=== PATIENT | male | born 1960 | race Caucasian/White ===

== ENCOUNTER 2024-10-16 12:28 | Emergency (ER) | payer BC, SELFPAY ==
[2024-10-16] VITALS (11 sets, daily range): BP systolic 117–136; BP diastolic 69–84; PULSE 66–72; RESP 11–23; O2SAT 95–100
--- NOTE | ~2024-10-16 | CT_ITS ---
EXAMINATION: CT cervical spine wo con DATE: 10/16/2024 13:12 INDICATION: Neck pain after fall TECHNIQUE: Computed tomography (CT) of the cervical spine was performed without intravenous contrast. The dose-length product was 486 mGy-cm. Automated exposure control and iterative reconstruction technique were employed. COMPARISON: None FINDINGS: No acute fracture or traumatic malalignment. Craniovertebral junction is normal. There is moderate degenerative spondylosis at C3-4-3 C6-7 characterized is disc narrowing, endplate sclerosis as well as facet and uncinate hypertrophy. No evidence for perched facet. Craniovertebral junction is normal. Thyroid gland is normal. Lung apices are normal. IMPRESSION: 1. No acute abnormality of the cervical spine. Reviewed, dictated and finalized at location O.
--- NOTE | ~2024-10-16 | CT_ITS ---
EXAMINATION: CT BRAIN W/O DATE: 10/16/2024 13:12 INDICATION: Syncope. Head injury. TECHNIQUE: Computed tomography (CT) of the head was performed without intravenous contrast. The dose-length product was 1224.78 mGy-cm. COMPARISON: No prior studies for comparison. FINDINGS: Normal brain parenchymal volume for age. Normal stanton-white differentiation. No acute intracranial hemorrhage, infarction, mass or mass effect. No ventriculomegaly or midline shift. Midline sagittal images demonstrate a normal corpus callosum, craniovertebral junction and sella turcica. Basilar cisterns are patent. Paranasal sinuses and mastoids are pneumatized. No depressed skull fractures. IMPRESSION: 1. No acute intracranial abnormality. Reviewed, dictated and finalized at location O.
--- OUTSIDE RECORDS SUMMARY | 2024-10-16 12:56 | XMS_ITS | Clinical Summary ---
Author Organization [facility] Address [address] [place] [address] Care Team Providers Care Renal Dietitian Name Role Phone Jeff Chappell MD Unavailable [phone] Farhat Fritz MD Primary Care Provider Allergies No known active allergies Medications multivitamin,th erapeutic (THERA ORAL) Take 1 tablet by mouth every morning Active valACYclovir (VALTREX) 1 gram tablet Valtrex 1gm, 1 po bid x 3 days, disp 6, 2 RF 6 tablet 2 4 Active Additional Information Patient taking differently: As needed, Valtrex 1gm, 1 po bid x 3 days, disp 6, 2 RF, Reported on 10/12/2024 Auvi-Q 0.3 mg/0.3 mL auto-injection syringeIndicati ons:Anaphylaxis INJECT 0.3 ML (0.3 MG TOTAL) INTO THE MUSCLE INSTRUCTED NEEDED FOR ANAPHYLAXIS 2 each 1 5 Active tacrolimus (PROTOPIC) 0.1 % ointment APPLY TO RASH AREAS ON BODY 2 TIMES A DAY FOR FLARES, THEN USE TWICE A WEEK TO PREVENT RECURRENCES 5 Active terbinafine (LamiSIL) 250 mg tablet Take 1 tablet (250 mg total) by mouth daily for 90 days 5 Active losartan (COZAAR) 25 mg tablet Take 1 tablet (25 mg total) by mouth daily 30 tablet 11 5 09/03/19 26 Active Active Problems Problem Noted Date Diagnosed Date Aneurysm of ascending aorta without rupture 05/25 Family history of heart disease 04/02/2024 Hyperlipidemia 10/12/2021 Assessment & Plan (04/02/2024 9:00 AM BEARING PRESS MACHINE 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 Had side effects with statin. Will risk stratify with coronary artery calcium score given strong family history of ASCVD. Assessment & Plan (04/08/2023 8:37 PM BEARING PRESS MACHINE OPERATOR): ASCVD risk is around 9%, which is intermediate. Given his family history of heart disease, I recommended that we start a statin to reduce his overall cardiovascular risk. Rx'ed rosuvastatin 5 mg daily. Discussed possible side effects. Repeat lipids in 6 months ordered at [facility]. Assessment & Plan (10/12/2021 8:40 AM CDT): LDL cholesterol in reasonable range without need for statin at this time. Continue current diet and exercise regimen. Cellulitis of toe of left foot 04/24/2020 Ingrown nail 04/24/2020 Left inguinal hernia 07/29/2018 Overview (07/29/2018): Added automatically from request for surgery [id number] Deviated nasal septum 04/10/2018 Hypertrophy of nasal turbinates 04/10/2018 Nasal obstruction 04/09/2018 Obstructive sleep apnea 04/09/2018 Encounter for preventive care 11/20/2017 Overview (11/20/2017): Added automatically from request for surgery [id number] Assessment & Plan (04/02/2024 8:29 AM BEARING PRESS MACHINE OPERATOR): Continue healthy lifestyle. Colonoscopy due in 2025. Check PSA. Recommended the following vaccinations: COVID Flu [id number] Assessment & Plan (04/08/2023 8:37 PM BEARING PRESS MACHINE OPERATOR): Overall good health. Colonoscopy is due in 2025. Check PSA today. We administered a Tdap vaccine today. Assessment & Plan (10/12/2021 8:41 AM CDT): Continue healthy lifestyle. Colonoscopy ordered. PSA due today. Recommended 4th COVID shot and Shingrix. Encounters Date Type Department Care Team Description 10/12/2024 8:30 AM CDT Office Visit [facility] Neuro Sleep [address] [facility] 6th [address] [place] [phone] Felipe Vega PA Snoring (Primary Dx); Hypersomnia; Aneurysm of ascending aorta without rupture 09/17/2024 Telephone [facility] Cardiology [facility] 8th [place] [address] [place] [address] Addison Lee MD Genetic Testing 09/10/2024 Telephone [facility] Scheduling [address] [place] [address] Maria Luisa Call 09/02/2024 9:00 AM CDT Office Visit [facility] Cardiology [address] [place] [address] 8th [place] [address] [place] [address] Addison Lee MD Aortic dilatation (Primary Dx); Family history of heart disease; Elevated coronary artery calcium score 09/02/2024 Results Follow-Up [facility] [address] [place] [address] 8th [place] [address] [place] [address] Addison Lee MD ECG 12 lead from Last 3 Months Immunizations Immunization Administration Dates Next Due Pfizer SARS-CoV-2 Monovalent Vaccination (12+ Yrs) CLEMENTS-READY TO USE 10/12/2021 Tdap 04/08/2023 Surgical History Surgery Date Site/Laterality Comments MELANOMA RESECTION ELBOW SURGERY Right COLONOSCOPY ELBOW SURGERY HERNIA REPAIR Medical History Medical History Date Comments Personal history of other di seases of the nervous system and sense organs History of impacted ce rumen - (Added by TW Conv) History of colon polyps 2011 Arthritis Bone fracture Dyslipidemia Family History Medical History Relation Name Comments Heart disease Father Family history of cardiac disorder - (Added by TW Conv) Heart disease Mother Stroke Mother Relation Name Status Comments Brother Alive Father Mother Alive Sister Alive Social History Tobacco Use Types Packs/Day Years Used Date Smoking Tobacco: Former Cigarettes 0.5 12 1 983 - 1994 Smokeless Tobacco: Never Tobacco Cessation:Counseling Given: Not Answered Alcohol Use Standard Drinks/Week Comments Yes 7 (1 standard drink = 0.6 oz pur e alcohol) AUDIT-C Answer Date Recorded Q1: How often do you have a drink containing alcohol? 4 or more times a week 04/08/2023 Q2: How many drinks containi ng alcohol do you have on a typical day when you are drinking? 1 or 2 Q3: How often do you have si x or more drinks on one occasion? Never 04/08/2023 PHQ-2 Answer Date Recorded PHQ-2 Total Score (If total score is 3 or more points, staff should administer the PHQ-9) 0 04/07/2023 Personal Safety Answer Date Recorded Getting School Help Needed Denies 02/26 Sex and Gender Information Value Date Recorded Sex Assigned at Not on file Legal Sex Male 2:22 AM BEARING PRESS MACHINE OPERATOR Gender Identity Male 02/27/2020 11:17 AM BEARING PRESS MACHINE OPERATOR Sexual Orientation Choose not to disclose 2020 11:18 AM BEARING PRESS MACHINE OPERATOR Obstetrics History Last Filed Vital Signs Vital Sign Reading Time Taken Comments Blood Pressure 118/75 10/12/2024 8:22 AM CDT Pulse 53 10/12/2024 8:22 AM CDT Temperature 36.6 C (97.8 F) 10/12/2024 8:22 AM CDT Respiratory Rate 16 04/05/2022 10:55 AM BEARING PRESS MACHINE OPERATOR Oxygen Saturation 99% 10/12/2024 8:22 AM CDT Inhaled Oxygen Concentration - - Weight 88.2 kg (194 lb 8 oz) 10/12/2024 8:22 AM CDT Height 185.4 cm (6' 1) 10/12/2024 8:22 AM CDT Body Mass Index 25.66 10/12/2024 8:22 AM CDT Plan of Treatment Health Maintenance Due Date Last Done Comments Hepatitis B Screening 07/22/1979 Zoster Vaccine (1 of 2) 07/22/2011 Covid-19 Vaccine ( season) 2023 10/12/2021, 05/15/2020 Depression Screening 04/08/2024 04/08/2023, 10/13/19 22 Influenza Vaccine (#1) 2024 Regular Well Visit/Exam 18-64 04/02/2025 04/02/2024, 04/08/2023, 10/12/2021, Additional history exists Prostate Cancer Screening-PSA 05/17/2026 05/17/2024, 04/02/2024, 04/08/2023, Additional history exists Colon Cancer Screening-Colonoscopy 04/05/2032 04/05/2022, 03/16/2018 DTaP/Tdap/Td Vaccine (2 - Td or Tdap) 04/08/2033 04/08/2023 Colon Cancer Screening-CT Colonography Discontinued 04/05/2022, 03/16/2018 Colon Cancer Screening-DNA Stool Discontinued 04/05/2022, 03/16/2018 Colon Cancer Screening-FIT Discontinued 04/05/2022, Colon Cancer Screening-Sigmoidoscopy Discontinued 04/05/2022, 03/16/2018 Hepatitis C Screening Completed 11/13/2023 Pneumococcal vaccine <65 Aged Out No longer eligible based on patient's age to complete this topic Medical Devices Implanted Type Area Dehydration Unit Operator Device Identifier Shelf Expiration Date Model / Serial / Lot Mesh 2.4mm Pcut Flt 6x13cm Surg Plyprpyln Macroporous Ki - [id number] Implanted:Qty: 1 on 08/24/2018 by Josi Moreno MD at [facility] Mesh Left: Inguinal [employer]/C R Bard 04/23/2023 [id number] / / [id number] Procedures Procedure Name Priority Date/Time Associated Diagnosis Comments ECG 12-LEAD Routine 09/02/2024 8:48 AM CDT Family history of heart disease PSA SCREEN Routine 05/17/2024 12:00 PM CDT Elevated PSA HEPATITIS PANEL, ACUTE Routine 11/13/2023 8:59 AM CDT Elevated liver enzymes COLONOSCOPY 04/05/2022 9:37 AM BEARING PRESS MACHINE OPERATOR from Last 3 Months or Most Recently Relevant to Health Maintenance Results * ECG 12 lead (09/02/2024 8:48 AM CDT) Addison Lee MD ECG ORDERABLES Edited Result - Final * PSA screen (05/17/2024 12:00 PM CDT) PSA-Total 2.71 <=5.40 ng/mL Comment: Interpretive Data AGE SEX REFERENCE INTERVAL 0 minutes-150 years Female None 0 minutes-49 years Male None 50-59 years Male 0-3.90 60-69 years Male 0-5.40 70-79 years Male 0-6.20 80-150 years Male 0-6.20 The Carol PSA Total assay procedure was used. Results from different manufacturers or methods may not be comparable. Serial testing should be performed using the same method. Current interpretive data last revised 21. Blood 05/17/2024 12:0 0 PM CDT 05/17/2024 3:20 PM CDT Farhat Fritz MD LAB BLOOD ORDERABLES Fi nal Result [facility] [address] [employer] [place] [employer] [place] [address] * Hepatitis panel, acute Blood (11/13/2023 8:59 AM CDT) Pathologist [facility] Hep A IgM Nonreactive Nonreactive Hep B core IgM Nonreactive Nonreactive [facility] Hep C Ab Nonreactive Nonreactive [facility] Comment:Antibodies to HCV no t detected. Does NOT exclude the possibility of recent exposure to HCV. Current interpretive data was last revised on 21 HepBsAg Nonreactive Nonreactive [facility] Blood 11/13/2023 8:59 AM CDT 11/13/2023 9:37 AM CDT Sara Bansal NP LAB MICROBIOLOGY - GENERAL OR DERABLES Final Result [facility] Department [place] [address] * COLONOSCOPY (04/05/2022 9:37 AM BEARING PRESS MACHINE OPERATOR) Anatomical Region Laterality Modality Other Narrative Procedure Note Asaf Reyes MD - 04/05/2022 9:37 AM CST [facility] Patient Name: Rudy Garcia Procedure Date: 04/05/2022 9:37 AM Date of : 1960 Admit Type: Outpatient Age: 61 Gender: Male Attending MD: Asaf Reyes M.D. Room: [facility] ENDOSCOPY ROOM 9 Note Status: Finalized Procedure: Colonoscopy Indications: High risk colon cancer surveillance: Personalhistory of colonic polyps, Last colonoscopy: February 2018 Referring MD: Asaf Reyes M.D. Providers: Asaf Reyes M.D. Medicines: Monitored Anesthesia Care Complications: No immediate complications. Estimated Blood Loss: None. Procedure: Pre-Anesthesia Assessment: - Monitored anesthesia care under the supervisionof a PACKAGING CLERK was determined to be medically necessary forthis procedure based on review of the patient's medical history, medications, and prior anesthesiahistory. - Immediately prior to administration ofmedications, the patient was re-assessed for adequacy to receive sedatives. - The risks and benefits of the procedure and the sedation options and risks were discussed with the patient. All questions were answered and informed consent was obtained. The benefits, risks and alternatives of theprocedure and sedation were discussed and informed consentwas obtained. All questions were answered. Please referto the signed informed consent document in the medical record. The scope was passed under direct vision.The [id number] endoscope was introduced through the anus and advanced to the cecum, identified by appendiceal orifice and ileocecal valve. The colonoscopy was performed without difficulty. The patient tolerated the procedure well. The bowel preparation used was GoLYTELY via split dose instruction. Bowel prep was administered using asplit dose. The quality of the bowel preparation wasfair. Findings: A moderate amount of liquid semi-liquid semi-solid stool was found in the entire colon, precluding visualization. Lavage of the area was performed, resulting in clearance with good visualization. Normal mucosa was found in the entire colon. The perianal and digital rectal examinations were normal. Impression: - Stool in the entire examined colon. - Normal mucosa in the entire examined colon. - No specimens collected. Recommendation: - Discharge patient to home (ambulatory). - Repeat colonoscopy in 3 years for surveillance. - Return to referring physician. Electronically signed by Asaf Reyes MD Asaf Reyes M.D. 04/05/2022 10:39:38 AM . Number of Addenda: 0 Note Initiated On: 04/05/2022 9:37 AM Recognized by the [place] [employer] for promoting quality in endoscopy us Asaf Reyes MD ENDOSCOPY PROCEDURES Irasema l Result from Last 3 Months or Most Recently Relevant to Health Maintenance Insurance [facility] Advance Directives For more information, please contact: [phone] * Full Code (Latest Code Status on File) Date Activated Date Inactivated Comments 04/05/2022 9:19 AM 04/05/2022 3:36 PM * Full Code Date Activated Date Inactivated Comments 03/16/2018 2:12 PM 03/16/2018 7:48 PM Care Teams Renal Dietitian Relationship Specialty Start Date End Date Farhat Fritz MD [address] [address] PCP - General Endocrinology Diabetes & Metabolism 10/12/21 Jeff Chappell MD [address] [address] 04/07/18
--- OUTSIDE RECORDS SUMMARY | 2024-10-16 12:56 | XMS_ITS | Clinical Summary ---
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 Gender Identity Not on file Sexual Orientation Not on file Plan of Treatment Health Maintenance Due Date Last Done Comments Hepatitis C Virus (HCV) Screening 1960 TdaP Immunization 1960 Cologuard 2006 Colonoscopy 2006 Colorectal Cancer Screening 2006 Immunochemical Fecal Occult Blood 2006 Pneumococcal Immunization (5 0+ years) (1 of 1 - PCV) 07/22/2011 Zoster Immunization (1 of 2) 07/22/2011 SARS-COV-2 Immunization (1 - season) 2023 Influenza Immunization (#1) 2024 Respiratory Syncytial Virus (RSV) Immunization (Adult) (1 - 1-dose 75+ series) 2036 Hepatitis B Immunization Aged Out No longer eligible based on patient's age to complete this topic Human Papillomavirus (HPV) Immunization Aged Out No longer eligible b ased on patient's age to complete this topic Meningococcal Immunization (ACWY) Aged Out No longer eligible based on patient's age to complete this topic Rotavirus Immunization Aged Out No lo nger eligible based on patient's age to complete this topic
--- OUTSIDE RECORDS SUMMARY | 2024-10-16 12:56 | XMS_ITS | Encounter Summary ---
Author Organization [facility] Address [address] [facility] [address] [place] [address] Phone Care Team Providers Care Chief Librarian Music Department Name Role Phone Jeff Chappell MD Unavailable [phone] Farhat Fritz MD Primary Care Provider Encounter Details Date Type Department Care Team (Late st Contact Info) Description 09/02/2024 Results Follow-Up [facility] [address] [facility] 8th [place] [address] [place] [address] Addison Lee MD [address] [facility] [address] [place] [address] ECG 12 lead Social History Tobacco Use Types Packs/Day Years Used Date Smoking Tobacco: Former Cigarettes 0.5 12 1 983 - 1994 Smokeless Tobacco: Never Alcohol Use Standard Drinks/Week Comments Yes 7 [...] on file Legal Sex Male 2:22 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
--- NOTE | 2024-10-16 13:24 | ED_ITS ---
HPI - General Adult General Chief complaint: Allergic Reaction Stated complaint: wasp sting Time Seen by Provider: 10/16/24 12:38 History of Present Illness HPI narrative: Patient is 64-year-old gentleman presents emergency department chief complaint of allergic reaction syncope. Patient reports that he got stung by a wasp and reports that he has prior history of allergic reactions to wasp stings. Patient reports that he gave himself appy and give himself Benadryl prior to arrival the patient states that he felt as though any into the bathroom stood up and had a syncopal episode and landed on the ground the patient reports that he did have brief loss of consciousness and reports that he is starting to feel better at this point. Related Data Allergies Allergy/AdvReac Type Severity Reaction Status Date / Time Bumble Bee AdvReac Severe Uncoded 10/20/20 16:16 Review of Systems Review of Systems: A 10 system review of systems was completed on the patient and is negative except for what is stated in the HPI. Nursing and ancillary documentation was reviewed. Exam Narrative: GENERAL: Well-appearing, well-nourished, and in no acute distress. HEAD: Normocephalic, 2 cm laceration to the posterior scalp within the hairline. EYES: PERRLA and EOMI. ENT: Nares clear, no rhinorrhea or epistaxis. Mucous membranes moist. NECK: Supple. Minimal tenderness to palpation the cervical spine no bony step- off CHEST: Clear to auscultation. No respiratory distress. HEART: Regular rate and rhythm. No murmur heard. Normal peripheral pulses. ABDOMEN: Soft, nontender, nondistended, normal active bowel sounds. EXTREMITIES: Normal range of motion. No edema. SKIN: Warm, dry, no rash. NEURO: No focal deficits. Alert and oriented x3. PSYCH: Normal mood and affect. Course Vital Signs Vital signs: Vital Signs Pulse Rate 72 10/16/24 12:29 Respiratory Rate 16 10/16/24 12:29 Blood Pressure 117/70 10/16/24 12:29 Pulse Oximetry 95 10/16/24 12:29 Oxygen Delivery Room Air 10/16/24 12:29 Pulse Rate 72 10/16/24 12:29 Respiratory Rate 16 10/16/24 12:29 Blood Pressure 117/70 10/16/24 12:29 Pulse Oximetry 95 10/16/24 12:37 Oxygen Delivery Room Air 10/16/24 12:37 Procedures Laceration Laceration 1: Date: 10/16/24 Time: 14:39 Site: scalp Size (cm): 2 Description: linear Depth: simple, single layer Local Anesthetic: none Pre-repair: wound explored and irrigated ====== Skin Level ====== Skin layer closed with: elijah Number of sutures: 1 ====== Subcutaneous Layer ====== ====== Muscle Layer ====== ====== Tendon Layer ====== Medical Decision Making MDM Narrative Medical decision making narrative: Differential diagnosis includes vasovagal syncope, scalp laceration, intracranial hemorrhage, cervical spine fracture, allergic reaction Patient's symptoms have improved from allergic reaction Patient was given a prescription for steroids received IV Solu-Medrol in the emergency department Vital Signs Vital Signs: Vital Signs Pulse Rate 72 10/16/24 12:29 Respiratory Rate 16 10/16/24 12:29 Blood Pressure 117/70 10/16/24 12:29 Pulse Oximetry 95 10/16/24 12:29 Oxygen Delivery Room Air 10/16/24 12:29 Pulse Rate 72 10/16/24 12:29 Respiratory Rate 16 10/16/24 12:29 Blood Pressure 117/70 10/16/24 12:29 Pulse Oximetry 95 10/16/24 12:37 Oxygen Delivery Room Air 10/16/24 12:37 Discharge Plan Discharge Clinical Impression: Allergic reaction, Laceration of scalp, Syncope, vasovagal Patient Disposition: Home Condition: Stable Instructions: Antibiotic Form, Laceration (ED), Insect Bite or Sting (ED), General Allergic Reaction (ED) Additional Instructions: Please have the staple removed 7-10 days watch for signs of infection Patient Language: Swedish Prescriptions: New prednisone 20 mg tablet 40 mg PO DAILY 5 Days Qty: 10 0RF epinephrine [EpiPen 2-Charly] 0.3 mg/0.3 mL auto-injector 0.3 mg IM Q5-15M PRN (Reason: anaphylaxis) Qty: 2 1RF Rx Instructions: do not exceed 3 doses per episode Follow-up/Referrals: PHYSICIAN NOT ON STAFF,NONSTAFF [Primary Care Provider] Time of Disposition: 14:47
== END 2024-10-16 15:01 | disposition home or self-care (01) ==
PROVIDERS: Emergency Provider Emergency Medicine
DX: T63.461A Toxic effect of venom of wasps, accidental (unintentional), initial encounter (principal); R55 Syncope and collapse; S01.01XA Laceration without foreign body of scalp, initial encounter; W18.39XA Other fall on same level, initial encounter
CPT/HCPCS: 12001; 70450; 72125; 96374; 99284; J2919